=== PATIENT | male | born 1980 | race Caucasian/White ===

== ENCOUNTER 2016-06-07 08:28 | Emergency (ER) | payer OTHER ==
[2016-06-07] MEDS ORDERED: IBUPROFEN 600 MG TAB PO ONE (08:53)
[2016-06-07 08:56] VITALS: BP 128/62; PULSE 74; RESP 18; TEMP 98; O2SAT 96
--- NOTE | 2016-06-07 09:15 | UCPHY ---
H & P Patient Type: New Chief Complaint Nursing Narrative: c/o lt lower back pain after lifting tolet on Sat @ work Time Seen by Provider: 06/07/16 08:46 HPI/ROS: CHIEF COMPLAINT: LOW BACK PAIN HISTORY OF PRESENT ILLNESS: the patient is a 35-year-old man who comes to the Urgent Care complaining of left lower back pain that began when he was lifting a the toilet at work. He describes hearing a pop and feeling spasming in his back. This happened 3 days ago. At first He thought that it was a muscle in that would get gradually better. He has continued to work. He states that he has not been sleeping well. He did try taking a muscle relaxer at home without significant improvement. He has not had a fever. He has not had any bowel or bladder abnormalities. He is not have any radiation of the pain or radiculopathy. He does not have any weakness or numbness.He does have a history of back pain on the other side several years ago but has not had problems for a while. REVIEW OF SYSTEMS: Constitutional: denies: chills, fever, recent illness, recent injury EENTM: denies: blurred vision, double vision, nose congestion Respiratory: denies: cough, shortness of breath Cardiac: denies: chest pain, irregular heart rate, lightheadedness, palpitations Gastrointestinal/Abdominal: denies: abdominal pain, diarrhea, nausea, vomiting, blood streaked stools Genitourinary: denies: dysuria, frequency, hematuria, pain Musculoskeletal: See HPI Skin: denies: lesions, rash, jaundice, bruising Neurological: denies: headache, numbness, paresthesia, tingling, dizziness, weakness Hematologic/Lymphatic: denies: blood clots, easy bleeding, easy bruising Immunologic/allergic: denies: HIV/AIDS, transplant EXAM: GENERAL: Well-appearing, well-nourished and in no acute distress. HEAD: Atraumatic, normocephalic. EYES: Pupils equal round and reactive to light, extraocular movements intact, sclera anicteric, conjunctiva are normal. ENT: TMs normal, nares patent, oropharynx clear without exudates. Moist mucous membranes. NECK: Normal range of motion, supple without lymphadenopathy or JVD. LUNGS: Breath sounds clear to auscultation bilaterally and equal. No wheezes rales or rhonchi. HEART: Regular rate and rhythm without murmurs, rubs or gallops. ABDOMEN: Soft, nontender, normoactive bowel sounds. No guarding, no rebound. No masses appreciated. BACK: Pain to left paraspinous muscle lumbar region, no bony tenderness or step -offs. EXTREMITIES: Normal range of motion, no pitting or edema. No clubbing or cyanosis. NEUROLOGICAL: Cranial nerves II through XII grossly intact. Normal speech, normal gait. 5/5 strength, normal movement in all extremities, normal sensation PSYCH: Normal mood, normal affect. SKIN: Warm, dry, normal turgor, no visible rashes or lesions. Source: Patient Exam Limitations: No limitations - Personal History Current Tetanus Diphtheria and Acellular Pertussis (TDAP): Yes Tetanus Vaccine Date: within 10 yrs - Medical/Surgical History Hx Asthma: No Hx Chronic Respiratory Disease: No Hx Diabetes: No Hx Cardiac Disease: No Hx Renal Disease: No Hx Cirrhosis: No Hx Alcoholism: Yes Hx HIV/AIDS: No Hx Splenectomy or Spleen Trauma: No Other PMH: HX: HTN, ETOH ABUSE, ANXIETY, L KNEE SURGERY, TONSILECTOMY, back pain - Family History Significant Family History: No pertinent family hx - Social History Smoking Status: Current every day smoker Alcohol Use: Sober Drug Use: None Constitutional: Initial Vital Signs Temperature (C) 36.6 C 06/07/16 08:43 Heart Rate 74 06/07/16 08:43 Respiratory Rate 18 06/07/16 08:43 Blood Pressure 128/62 H 06/07/16 08:43 O2 Sat (%) 96 06/07/16 08:43 O2 Delivery Mode Room Air Allergies/Adverse Reactions: No Known Allergies Allergy (Verified 05/17/15 17:49) Home Medications: Medication Instructions Recorded Ibuprofen [Motrin (*)] 600 mg PO Q6 PRN #30 tab 05/17/15 Methocarbamol [Robaxin 750 mg (*)] 750 - 1,500 mg PO QID PRN #30 tab 05/17/15 oxyCODONE/APAP 5/325 [Percocet 1 - 2 tab PO Q4-6PRN PRN #20 tab 05/17/15 5/325 (*)] Ibuprofen 600 mg PO TID PRN #25 tablet 12/11/15 oxyCODONE/APAP 5/325 [Percocet 1 - 2 tab PO Q4-6PRN PRN #14 tab 06/07/16 5/325 (RX)] Medical Decision Making - Diagnostics Imaging: X-ray: Lumbar spine was obtained. I viewed the images myself on the PACS system. My interpretation of the images is: Negative for acute fracture, old L3 chip fracture. The radiologist interpretation is pending. ED Course/Re-evaluation: I suspect the patient has a muscular strain. Suggested pain medication and rest. Patient is requesting a x-ray of his lumbar spine. I will also have him follow up with worker's compensation on Sunday. He is supposed to go back to work on Sunday. 10:00 a.m. the patient is doing well. We discussed his x-ray results. He is aware of the old fracture. He is not currently seeing a spinal specialist. I will treat him with pain medication and have recommended physical therapy and rest. He agrees with this plan. Differential Diagnosis: Partial list of the Differential diagnosis considered include but were not limited to; muscle strain, compression fracture, radiculopathy and although unlikely based on the history and physical exam, I also considered infection, spinal cord injury. I discussed these differential diagnoses and the plan with the patient as well as the usual and expected course. The patient understands that the diagnosis is provisional and that in medicine we are not always correct and that further workup is often warranted. Usual and customary warnings were given. All of the patient's questions were answered. The patient was instructed to return to the emergency department should the symptoms at all worsen or return, otherwise to followup with the physician as we discussed. Departure - Departure Disposition: Home, Routine, Self-Care Clinical Impression: Lumbar strain Qualifiers: Encounter type: initial encounter Qualified Code(s): S39.012A - Strain of muscle, fascia and tendon of lower back, initial encounter Condition: Fair Instructions: Low Back Strain (ED) Referrals: Monroe Mccartney MD [Medical Doctor] - As per Instructions Stand Alone Forms: Work Comp Follow Up Prescriptions: oxyCODONE/APAP 5/325 [Percocet 5/325 (RX)] 1 - 2 tab PO Q4-6PRN PRN #14 tab PRN Reason: Pain - PQRS PQRS Measurement: Not applicable
== END 2016-06-07 10:24 | disposition home or self-care (01) ==
LOC: CED 08:28
DX: S39.012A Strain of muscle, fascia and tendon of lower back, initial encounter (principal); X50.0XXA Overexertion from strenuous movement or load, initial encounter; Y99.0 Civilian activity done for income or pay; I10 Essential (primary) hypertension; F41.9 Anxiety disorder, unspecified; F17.200 Nicotine dependence, unspecified, uncomplicated
CPT/HCPCS: 72100-PO; 99204-PO; G0463-PO

== ENCOUNTER 2017-05-23 08:48 | Emergency (ER) | payer OTHER ==
[2017-05-23 08:57] VITALS: TEMP 98.1; O2SAT 93
[2017-05-23] MEDS ORDERED: IBUPROFEN 600 MG TAB PO ONE (09:04)
--- NOTE | 2017-05-23 09:19 | EDPHY ---
H & P Stated Complaint: right shoulder inj ,0945 05/22 states at work Time Seen by Provider: 05/23/17 08:50 HPI/ROS: Chief Complaint: Right shoulder injury HPI: 36-year-old male was at work yesterday when he stepped off the back of a truck onto a Pallet and slipped. Patient fell down onto his outstretched arms which were behind him, hyper extending his right shoulder. Initially had little pain but is had worsening pain in his anterior right shoulder since then. He has decreased range of motion. No numbness or weakness. States that hurts to move his arm. No prior injuries. Did not his head. No other injuries. ROS: 10 point Review of Systems is negative except as noted in the HPI. PMH: Denies Social History: No smoking, no alcohol, no recreational drug use Family History: non-contributory Physical Exam: General: Awake, alert, no acute distress Right shoulder. Patient has limited range of motion secondary to pain. He is only able to abduct to about 45. He also has pain with internal rotation. There is tenderness along the attachments of the supraspinatus and superior and anterior ligaments. Clavicle is nontender. There is some tenderness at the AC joint. Right hand: Sensations intact in the radial, median and ulnar nerve distribution. Capillary refills less than 2 sec. Is good physical trainer strength. 2+ pulses. - Personal History Current Tetanus/Diphtheria Vaccine: Unsure Current Tetanus Diphtheria and Acellular Pertussis (TDAP): Unsure Tetanus Vaccine Date: within 10 yrs - Medical/Surgical History Hx Asthma: No Hx Chronic Respiratory Disease: No Hx Diabetes: No Hx Cardiac Disease: No Hx Renal Disease: No Hx Cirrhosis: No Hx Alcoholism: Yes Hx HIV/AIDS: No Hx Splenectomy or Spleen Trauma: No Other PMH: HX: HTN, ETOH ABUSE, ANXIETY, L KNEE SURGERY, TONSILECTOMY, back pain - Social History Smoking Status: Heavy smoker Constitutional: Initial Vital Signs Temperature (C) 36.7 C 05/23/17 08:51 Heart Rate 93 05/23/17 08:51 Respiratory Rate 16 05/23/17 08:51 Blood Pressure 134/84 H 05/23/17 08:51 O2 Sat (%) 93 05/23/17 08:51 O2 Delivery Mode Room Air Allergies/Adverse Reactions: No Known Allergies Allergy (Verified 05/17/15 17:49) Home Medications: Medication Instructions Recorded NK [No Known Home Meds] 05/23/17 Medical Decision Making - Diagnostics Imaging Results: Imaging Impressions Shoulder X-Ray 05/23/17 09:01 Impression: 1. Anatomic alignment of the glenohumeral and acromioclavicular joints. 2. Small soft tissue calcification(s) versus age-indeterminate avulsion injury near the greater tuberosity. If there is further clinical concern regarding the patient's shoulder pain, MR imaging could be considered. Imaging: I viewed and interpreted images myself ED Course/Re-evaluation: Patient has no obvious acute fracture. There is an avulsion of uncertain age. He has been placed in a sling and will be referred to Orthopedics for further follow-up. He has been given ibuprofen 600 mg here. - Data Points Medications Given: Discontinued Medications Ibuprofen (Motrin) 600 mg PO EDNOW ONE Stop: 05/23/17 09:05 Last Admin: 05/23/17 09:13 Dose: 600 mg Departure - Departure Disposition: Home, Routine, Self-Care Clinical Impression: Shoulder sprain Condition: Good Instructions: Shoulder Sprain (ED), How to Use a Sling (ED) Additional Instructions: He may take ibuprofen, 600 mg 3 times a day for pain. You may also take acetaminophen, 1000 mg every 6 hr. Follow up with Orthopedics within the next week for further evaluation. Referrals: NONE *PRIMARY CARE P,. [Primary Care Provider] - As per Instructions Brandyn Mendoza MD [Medical Doctor] - As per Instructions
[2017-05-23 10:12] VITALS: BP 130/78; PULSE 90; RESP 14
== END 2017-05-23 10:00 | disposition home or self-care (01) ==
LOC: CED 08:48
DX: S43.401A Unspecified sprain of right shoulder joint, initial encounter (principal); I10 Essential (primary) hypertension; F17.200 Nicotine dependence, unspecified, uncomplicated; W01.0XXA Fall on same level from slipping, tripping and stumbling without subsequent striking against object, initial encounter; Y92.69 Other specified industrial and construction area as the place of occurrence of the external cause; Y99.8 Other external cause status; Y93.89 Activity, other specified
CPT/HCPCS: 73030-PO

== ENCOUNTER 2018-08-28 20:01 | Emergency (ER) | payer OTHER ==
--- NOTE | 2018-08-28 20:18 | EDPHY ---
H & P Time Seen by Provider: 08/28/18 20:17 HPI/ROS: HPI CHIEF COMPLAINT: Right shoulder injury HISTORY OF PRESENT ILLNESS: This patient is a 37-year-old male, otherwise healthy, presents emergency room with right shoulder pain. Patient states this happened August 08 or close to some days ago. Patient states he was lifting a cabinet up above his shoulders and felt pain into his right shoulder. He thought maybe just tore a muscle. He somewhat ignored it. However he is lifting a heavy slab of granted today and felt further pain in his right shoulder. He has worsening pain when he brings his arm and abducts it across his chest. Additionally when he abducts his right arm against resistance he has discomfort. No significant pain with supination pronation of the hand and wrist. No numbness or tingling. He has good distal pulse. No direct trauma to his right shoulder. Past Medical History: Denies significant medical history Past Surgical History: Denies significant surgical history Social History: Denies daily use of drugs alcohol tobacco. Family History: Noncontributory ROS REVIEW OF SYSTEMS: 10 Systems were reviewed and negative with the exception of the elements mentioned in the history of present illness. Exam Constitutional triage nursing summary reviewed, vital signs reviewed, awake/ alert. Eyes normal conjunctivae and sclera, EOMI, PERRLA. HENT normal inspection, atraumatic, moist mucus membranes, no epistaxis, neck supple/ no meningismus, no raccoon eyes. Respiratory clear to auscultation bilaterally, normal breath sounds, no respiratory distress, no wheezing. Cardiovascular rate normal, regular rhythm, no murmur, no edema, distal pulses normal. Gastrointestinal soft, non-tender, no rebound, no guarding, normal bowel sounds, no distension, no pulsatile mass. Genitourinary no CVA tenderness. Musculoskeletal right upper extremity; right arm is neurovascularly intact with good distal pulse, good cap refill, full range of motion of the right shoulder, x-ray nerve sensation intact. With abduction of the arm he has discomfort, with abduction against resistance he has discomfort. Mainly discomfort in his mid shoulder. No obvious deformity on exam. No clavicular pain. no midline vertebral tenderness, full range of motion, no calf swelling, no tenderness of extremities, no meningismus, good pulses, neurovascularly intact. Skin pink, warm, & dry, no rash, skin atraumatic. Neurologic awake, alert and oriented x 3, AAOx3, moves all 4 extremities equally, motor intact, sensory intact, CN II-XII intact, normal cerebellar, normal vision, normal speech. Psychiatric normal mood/affect. Heme/Lymph/Immune no lymphadenopathy. Differential Diagnosis: Includes but is not limited to in a particular order shoulder strain, rotator cuff injury, x-ray nerve injury, musculoskeletal strain. Medical Decision Making: Plan for this patient x-ray right shoulder, also placed in a sling. Recommend ice, anti-inflammatory pain medicine. Clinically on exam I do believe the patient has a rotator cuff injury. I do recommend he follows up with Orthopedics. X-ray will be obtained. Re-evaluation: X-ray the right shoulder reviewed. Negative for acute fracture malalignment. Recommend patient follows up with Orthopedics. Patient placed in a sling for comfort. Ice, anti-inflammatories. I do believe he most likely has a rotator cuff injury. Recommend close follow- up with Orthopedics he understands this. Return precautions discussed. His right arm is otherwise neurovascular intact with good distal pulse, good cap refill, sensation intact. Source: Patient - Personal History Tetanus Vaccine Date: within 10 yrs - Medical/Surgical History Hx Asthma: No Hx Chronic Respiratory Disease: No Hx Diabetes: No Hx Cardiac Disease: No Hx Renal Disease: No Hx Cirrhosis: No Hx Alcoholism: Yes Hx HIV/AIDS: No Hx Splenectomy or Spleen Trauma: No Other PMH: HX: HTN, ETOH ABUSE, ANXIETY, L KNEE SURGERY, TONSILECTOMY, back pain - Social History Smoking Status: Heavy smoker Constitutional: Initial Vital Signs Temperature (C) 36.7 C 08/28/18 20:18 Heart Rate 102 H 08/28/18 20:18 Respiratory Rate 16 08/28/18 20:18 Blood Pressure 147/96 H 08/28/18 20:18 O2 Sat (%) 93 08/28/18 20:18 O2 Delivery Mode Room Air Allergies/Adverse Reactions: No Known Allergies Allergy (Verified 08/28/18 20:24) Home Medications: Medication Instructions Recorded NK [No Known Home Meds] 05/23/17 Medical Decision Making - Diagnostics Imaging Results: Imaging Impressions Shoulder X-Ray 08/28/18 20:21 Impression: No acute osseous abnormality. Mild acromioclavicular osteoarthrosis. Departure - Departure Disposition: Home, Routine, Self-Care Clinical Impression: Rotator cuff injury Condition: Good Instructions: Rotator Cuff Injury (ED) Additional Instructions: 1. Please follow up with her orthopedic surgeon called a follow-up appointment. 2. Sling, anti-inflammatory pain medicine, ice. Referrals: NONE *PRIMARY CARE P,. [Primary Care Provider] - As per Instructions James Albarado MD [Medical Doctor] - As per Instructions
[2018-08-28 21:43] VITALS: BP 138/78
== END 2018-08-28 21:42 | disposition home or self-care (01) ==
LOC: CED 20:01
DX: S46.001A Unspecified injury of muscle(s) and tendon(s) of the rotator cuff of right shoulder, initial encounter (principal); M19.011 Primary osteoarthritis, right shoulder; X50.0XXA Overexertion from strenuous movement or load, initial encounter; Y93.89 Activity, other specified
CPT/HCPCS: 73030-PO; 99283-ER; A4565-ER